=== PATIENT | male | born 2000 | race Caucasian/White ===

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

== ENCOUNTER 2019-01-08 13:23 | Emergency (ER) | payer BC ==
[2019-01-08] MEDS ORDERED: ONDANSETRON 4 MG (ODT) TAB ONE (14:54)
--- NOTE | 2019-01-08 14:54 | EDPHYS ---
Physician Documentation [facility] Name: Frantz Peralta Age: 19 yrs Sex: Male : 2000 Arrival Date: 01/08/2019 Time: 13:25 Bed 9 Private MD: Unknown, Unknown ED Physician Jhon Hanley HPI: 01/08 14:48 This 19 yrs old Male presents to ER via Ambulatory with complaints of Lump On jr8 Armpit. 14:48 This 19 yrs old Male presents to ER via Ambulatory with complaints of Lump On jr8 Armpit and face. 14:48 Patient stated that he was recently treated with abx for lump in armpit. Suppose to jr8 have US soon to evaluate area. Came today because now he has swollen, red, tender region to chin . Severity of symptoms: At their worst the symptoms were mild in the emergency department the symptoms are unchanged. It is unknown whether or not the patient has had similar symptoms in the past. The patient has been recently seen by a physician:. Historical: - Allergies: 13:38 No Known Allergies; la1 - PMHx: 13:38 None; la1 - Immunization history:: Adult Immunizations up to date. - Social history:: Smoking status: Patient/guardian denies using tobacco. - Ebola Screening: : No symptoms or risks identified at this time. ROS: 14:48 Constitutional: Negative for fever, chills, and weight loss. jr8 14:48 Skin: Positive for abscess. 14:48 Hematologic/Lymphatic: Positive for swollen nodes. 14:48 All other systems are negative. Exam: 14:48 Head/Face: Normocephalic, atraumatic. Eyes: Pupils equal round and reactive to light, jr8 extra-ocular motions intact. Lids and lashes normal. Conjunctiva and sclera are non-icteric and not injected. Cornea within normal limits. Periorbital areas with no swelling, redness, or edema. ENT: Nares patent. No nasal discharge, no septal abnormalities noted. Tympanic membranes are normal and external auditory canals are clear. Oropharynx with no redness, swelling, or masses, exudates, or evidence of obstruction, uvula midline. Mucous membranes moist. Neck: Trachea midline, no thyromegaly or masses palpated, and no cervical lymphadenopathy. Supple, full range of motion without nuchal rigidity, or vertebral point tenderness. No Meningismus. Chest/axilla: Normal chest wall appearance and motion. Nontender with no deformity. No lesions are appreciated. No axillary lymphadenopathy, mass, or abscess identified Cardiovascular: Regular rate and rhythm with a normal S1 and S2. No gallops, murmurs, or rubs. Normal PMI, no JVD. No pulse deficits. Respiratory: Lungs have equal breath sounds bilaterally, clear to auscultation and percussion. No rales, rhonchi or wheezes noted. No increased work of breathing, no retractions or nasal flaring. Abdomen/GI: Soft, non-tender, with normal bowel sounds. No distension or tympany. No guarding or rebound. No evidence of tenderness throughout. Back: No spinal tenderness. No costovertebral tenderness. Full range of motion. MS/ Extremity: Pulses equal, no cyanosis. Neurovascular intact. Full, normal range of motion. Neuro: Awake and alert, GCS 15, oriented to person, place, time, and situation. Cranial nerves II-XII grossly intact. Motor strength 5/5 in all extremities. Sensory grossly intact. Cerebellar exam normal. Normal gait. 14:48 Skin: small abscess to mental region of chin noted with purulent head. Vital Signs: 13:40 BP 127 / 87; Pulse 100; Resp 16; Temp 98.1; Pulse Ox 100% on R/A; Weight 108.86 kg; la1 Height 5 ft. 2 in. (157.48 cm); 13:40 Body Mass Index 43.90 (108.86 kg, 157.48 cm) [facility] Procedures: 14:48 I \T\ D: Incision and drainage was performed for an abscess of the chin Prepped with jr8 Betadine, Incised with #11 blade. Drained moderate amount purulent fluid. bloody fluid. the patient tolerated the procedure well. MDM: 14:20 Patient medically screened. [facility] 14:48 Data reviewed: vital signs, nurses notes, and as a result, I will discharge patient. jr8 Data interpreted: Pulse oximetry: on room air is 100 %. Interpretation: normal. Counseling: I had a detailed discussion with the patient and/or guardian regarding: the historical points, exam findings, and any diagnostic results supporting the discharge/admit diagnosis, the need for outpatient follow up, a general surgeon, to return to the emergency department if symptoms worsen or persist or if there are any questions or concerns that arise at home. ED course: Drained identifiable abscess on chin. No acute findings to axilla. Recommended keeping US appointment regardless and to follow back up with Chad . Administered Medications: 14:00 Drug: Zofran 4 mg Route: PO; ss 14:59 Follow up: Response: No adverse reaction; Medication administered at discharge. ss 14:53 Not Given (Other Intervention Used): morphine 4 mg IM once; RASS on ADMIN: Combtv4, jr8 Very Agttd3, Agttd2, Rstlss1, AlertClm0, Drwsy-1, Lt Sdtn-2, Mod Sdtn-3, Dp Sdtn-4, UnArsble-5 14:57 Drug: [place] (7.5 mg-325 mg) 1 tabs Route: PO; ss 14:59 Follow up: Response: No adverse reaction; Medication administered at discharge. ss Disposition: 16:07 Co-signature as Attending Physician, Jhon Hanley MD. rn Disposition: 01/08/19 14:54 Discharged to Home. Impression: Cutaneous abscess of face. - Condition is Stable. - Discharge Instructions: Skin Abscess, Incision and Drainage. - Prescriptions for Bactroban 2 % Topical Ointment - Apply to affected area 1 application by TOPICAL route every 12 hours; 30 gram. Bactrim DS 800- 160 mg Oral Tablet - take 1 tablet by ORAL route every 12 hours for 10 days; 20 tablet. - Medication Reconciliation Form, Thank You Letter, Antibiotic Education, Prescription Opioid Use form. - Follow up: Adama Bonilla MD; When: 1 week; Reason: Recheck today's complaints, Continuance of care, Re-evaluation by your physician. - Problem is new. - Symptoms have improved. Signatures: Jhon Hanley MD MD rn Smirch, Shelby, RN RN ss Jimmie Trammell PA PA jr8 Herman Segovia RN RN la1 Corrections: (The following items were deleted from the chart) 15:08 14:54 01/08/2019 14:54 Discharged to Home. Impression: Cutaneous abscess of face. ss Condition is Stable. Forms are Medication Reconciliation Form, Thank You Letter, Antibiotic Education, Prescription Opioid Use. Follow up: Adama Bonilla; When: 1 week; Reason: Recheck today's complaints, Continuance of care, Re-evaluation by your physician. Problem is new. Symptoms have improved. jr8
--- NOTE | 2019-01-08 14:54 | ER ---
Nurse's Notes [facility] Name: Frantz Peralta Age: 19 yrs Sex: Male : 2000 Arrival Date: 01/08/2019 Time: 13:25 Bed 9 Private MD: Unknown, Unknown Diagnosis: Cutaneous abscess of face Presentation: 01/08 13:38 Presenting complaint: Patient states: I have some redness and a spot on my chin and la1 under my left arm, they put me on cipro for the spot under my arm but its not getting better. Transition of care: patient was not received from another setting of care. Onset of symptoms was January 08, 2019. Risk Assessment: Do you want to hurt yourself or someone else? Patient reports no desire to harm self or others. Initial Sepsis Screen: Does the patient meet any 2 criteria? No. Patient's initial sepsis screen is negative. Does the patient have a suspected source of infection? No. Patient's initial sepsis screen is negative. Care prior to arrival: None. 13:38 Method Of Arrival: Ambulatory la1 13:38 Acuity: RICKY 4 la1 Historical: - Allergies: 13:38 No Known Allergies; la1 - PMHx: 13:38 None; la1 - Immunization history:: Adult Immunizations up to date. - Social history:: Smoking status: Patient/guardian denies using tobacco. - Ebola Screening: : No symptoms or risks identified at this time. Screenin:04 Abuse screen: Denies threats or abuse. Denies injuries from another. Nutritional ss screening: No deficits noted. Tuberculosis screening: Never had TB. Fall Risk None identified. Assessment: 14:04 General: Appears in no apparent distress. comfortable, Behavior is calm, cooperative, ss Denies fever, feeling ill, fatigue, chills. Pain: Complains of pain in chin. Neuro: Level of Consciousness is awake, alert, obeys commands, Oriented to person, place, time, situation. Cardiovascular: Capillary refill < 3 seconds is brisk in bilateral fingers. Respiratory: Airway is patent Respiratory effort is even, unlabored, Respiratory pattern is regular, symmetrical. GI: Patient currently denies abdominal pain, nausea. EENT: Oral mucosa is moist. Derm: Skin is pink, warm \T\ dry. normal, Abscess located on chin is quarter sized, is red, is raised. Musculoskeletal: Circulation, motion, and sensation intact. Range of motion: intact in all extremities, Swelling absent. Vital Signs: 13:40 BP 127 / 87; Pulse 100; Resp 16; Temp 98.1; Pulse Ox 100% on R/A; Weight 108.86 kg; la1 Height 5 ft. 2 in. (157.48 cm); 13:40 Body Mass Index 43.90 (108.86 kg, 157.48 cm) la1 ED Course: 13:25 Patient arrived in ED. ag5 13:27 Unknown, Unknown is Private Physician. ag5 13:38 Arm band placed on right wrist. la1 13:40 Triage completed. la1 14:04 Patient has correct armband on for positive identification. Bed in low position. Call ss light in reach. 14:20 Jimmie Trammell PA is PHCP. jr8 14:20 Jhon Hanley MD is Attending Physician. jr8 14:43 Ayana Bates RN is Primary Nurse. ss 14:53 Adama Bonilla MD is Referral Physician. jr8 15:08 No provider procedures requiring assistance completed. Patient did not have IV access ss during this emergency room visit. Administered Medications: 14:00 Drug: Zofran 4 mg Route: PO; ss 14:59 Follow up: Response: No adverse reaction; Medication administered at discharge. ss 14:53 Not Given (Other Intervention Used): morphine 4 mg IM once; RASS on ADMIN: Combtv4, jr8 Very Agttd3, Agttd2, Rstlss1, AlertClm0, Drwsy-1, Lt Sdtn-2, Mod Sdtn-3, Dp Sdtn-4, UnArsble-5 14:57 Drug: [place] (7.5 mg-325 mg) 1 tabs Route: PO; ss 14:59 Follow up: Response: No adverse reaction; Medication administered at discharge. ss Outcome: 14:54 Discharge ordered by . jr8 15:08 Discharged to home ambulatory. ss 15:08 Condition: good 15:08 Discharge instructions given to patient, family, Instructed on discharge instructions, follow up and referral plans. medication usage, Demonstrated understanding of instructions, follow-up care, medications, Prescriptions given X 2. 15:08 Patient left the ED. ss Signatures: Ayana Bates, RN RN ss Jimmie Trammell PA PA jr8 Herman Segovia RN RN la1 Jocy Rodriguez ag5 Corrections: (The following items were deleted from the chart) 13:40 13:38 Presenting complaint: Patient states: I have some redness and a spot on my chin la1 and under my left arm, la1
[2019-01-08] MEDS ORDERED: HYDROCODONE/APAP 7.5/325 MG TAB ONE (14:55)
[2019-01-09] MEDS ORDERED: INFLUENZA VACCINE (for 3y+) 0.5 ML DOSE IMVAC ONE (14:00)
== END 2019-01-08 15:08 | disposition home or self-care (01) ==
LOC: ER 13:23
PROC: 0H91XZZ Drainage of Face Skin, External Approach (ICD-10-PCS; principal; 2019-01-08)
DX: L02.01 Cutaneous abscess of face (principal)
CPT/HCPCS: 99283

== ENCOUNTER 2019-01-09 11:33 | Inpatient (IN) | payer BC ==
--- NOTE | 2019-01-09 12:36 | P.HP ---
Certification for Inpatient Patient admitted to: Inpatient With expected LOS: >2 Midnights Patient will require the following post-hospital care: None Practitioner: I am a practitioner with admitting privileges, knowledge of patient current condition, hospital course, and medical plan of care. Services: Services provided to patient in accordance with Admission requirements found in Title 42 Section 412.3 of the Code of Federal Regulations <Chris Trammell - Last Filed: 01/09/19 12:31> Patient History Date of Service: 01/09/19 Primary Care Provider: None Reason for admission: Cutaneous abscess chin with cellulitis History of Present Illness: This is a 19-year-old male that presented to the emergency room yesterday for possible abscess of the chin. At that time abscesses on route and abscess was drained. Patient was put on oral antibiotics. Came back to the emergency room today for worsening of symptoms. Patient was directly admitted at that time myself. Home medications list reviewed: Yes - Past Medical/Surgical History Has patient received pneumonia vaccine in the past: Yes Diabetic: No Past Medical History: Patient denies medical history Past Surgical History: Patient denies surgical history - Family History Family History: Reviewed- Non-Contributory - Social History Smoking Status: Never smoker Smoking therapy provided: No Alcohol use: No CD- Drugs: No Caffeine use: No Place of Residence: Home <Chris Trammell - Last Filed: 01/09/19 12:31> Date of Service: 01/09/19 History of Present Illness: Case discussed and reviewed with Jimmie Trammell NP. Patient was actually seen yesterday at the emergency room. Patient was discharged home after drainage. Worsening of abscess noted. Patient will be admitted for IV antibiotic therapy. Case discussed with ENT for IV antibiotic therapy and likely debridement. - Past Medical/Surgical History Psychosocial/ Personal History: Patient lives at home. - Family History Mother -: GI disease, Other (see notes) Notes: Hernia surgery, 2018; Cholecystectomy 2013 Father -: Other (see notes) Notes: Dermatitis <Leobardo Crowder - Last Filed: 01/09/19 17:40> Allergies No Known Allergies Allergy (Verified 03/27/18 14:32) Home Medications: Ibuprofen 800 mg PO Q6HP PRN 07/18/16 Sulfamethoxazole/Trimethoprim [Bactrim Ds Tablet] 1 each PO BID 07/18/16 Lisdexamfetamine Dimesylate [Vyvanse] 50 mg PO PRN PRN 03/27/18 Codeine/APAP [Tylenol W/Codeine #3 tab] 1 tab PO Q4HP PRN #30 tab 03/28/18 Mupirocin Oint [Bactroban 2% Ointment] 22 appl TOP DAILY #1 tube 03/28/18 Review of Systems General: Unremarkable Eyes: Unremarkable ENT: Unremarkable Respiratory: Unremarkable Cardiovascular: Unremarkable Gastrointestinal: Unremarkable Musculoskeletal: Unremarkable Integumentary: As per HPI Neurological: Unremarkable Lymphatics: Unremarkable <Chris Trammell - Last Filed: 01/09/19 12:31> Physical Examination - Vital Signs Temperature: 99.2 F Blood Pressure: 139/80 Pulse: 115 Respirations: 16 Pulse Ox (%): 96 - Physical Exam General: Alert, In no apparent distress, Oriented x3, Cooperative HEENT: Normocephalic, PERRLA, Mucous membr. moist/pink, Other (No sub lingual edema or swelling noted to suggest Gaetano's angina), EOMI Neck: Supple, 2+ carotid pulse no bruit, JVD not distended, No Thyromegaly, Other (Submandibular lymphadenopathy present) Respiratory: Clear to auscultation bilaterally, Normal air movement Cardiovascular: No edema, Normal pulses, Regular rate/rhythm, Normal S1 S2, No gallops, No rubs, No murmurs Capillary refill: <2 Seconds Gastrointestinal: Normal bowel sounds, Soft and benign, Non-distended, No ascites, No tenderness, No masses Musculoskeletal: No clubbing, No swelling, No contractures, No erythema, No tenderness, No warmth Integumentary: Other (Patient has abscess to chin with active draining with submental swelling and submandibular swelling.) Neurological: Normal gait, Normal speech, Normal strength at 5/5 x4 extr, Normal tone, Sensation intact, Cranial nerves 3-12 intact, Normal reflexes 2+, Normal affect Lymphatics: No axilla or inguinal lymphadenopathy <Chris Trammell - Last Filed: 01/09/19 12:31> - Studies Laboratory Data (last 24 hrs) 01/09/19 12:20: Sodium 139, Potassium 3.9, BUN 7, Creatinine 0.96, Glucose 93, Total Bilirubin 1.3 H, AST 8 L, ALT 21, Alkaline Phosphatase 78 01/09/19 12:20: WBC 17.7 H, Hgb 16.7, Hct 47.0, Plt Count 296 <Leobardo Crowder - Last Filed: 01/09/19 17:40> Assessment and Plan - Problems (Diagnosis) (1) Cutaneous abscess of face Current Visit: Yes Status: Acute (2) Cellulitis, face Current Visit: Yes Status: Acute - Plan Patient will be evaluated by Dr. Kelley. NPO at this time and most likely will have debridement of abscess later today or tomorrow. Patient will be on IV antibiotics. Blood cultures and wound culture had been obtained. Pending results. Patient's blood work and vitals will be monitored over the next couple of days. Discharge Plan: Home Plan to discharge in: Greater than 2 days - Advance Directives Does patient have a Living Will: No Does patient have a Durable POA for Healthcare: No - Code Status/Comfort Care Code Status Assessed: Yes Code Status: Full Code Critical Care: No Time Spent Managing Pts Care (In Minutes): 30 <Chris Trammell - Last Filed: 01/09/19 12:31> - Plan Continue with plan of care. ENT has been consulted for likely debridement. Continue IV antibiotic therapy. Cultures obtained. <Leobardo Crowder - Last Filed: 01/09/19 17:40>
[2019-01-09] MEDS: VANCOMYCIN 2 GM in NA CHLORIDE 0.9% 500 ML IVPB SCH (12:47)
[2019-01-09] MEDS: CEFEPIME/SWI 1gm 10 ML IV SCH ×2 (12:47→20:52)
[2019-01-09] MEDS: NA CHLORIDE 0.9% 1,000 ML IV SCH (12:47)
[2019-01-09 12:56] LABS: Absolute Lymphocytes (CBC) 2.6 K/uL (0.7-4.9); Basophils % 0.3 % (0-1.3); Lymphocytes % 14.8 % (15.3-44.8); MPV 8.9 fL (7.6-11.3)
[2019-01-09 13:07] VITALS: BMI 36.2
--- NOTE | 2019-01-09 13:08 | RAD REPORT ---
EXAM DESCRIPTION: CT - Soft Tissue Neck W/Contr - 01/09/2019 12:31 pm CLINICAL HISTORY: Neck abscess COMPARISON: None. TECHNIQUE: Computed axial tomography of the neck was obtained. 50 cc Isovue 300 was administered in travenously. Coronal and sagittal reconstruction was performed. All CT scans are performed using dose optimization technique as appropriate and may include automated exposure control or mA/KV adjustment according to patient size. FINDINGS: A 15 millimeter low-density mass with an enhancing rim is present within subcutaneous tis latosha anterior to the mandible slightly to the left of midline. It is compatible with an abscess. There is a large amount of surrounding cellulitis present. Stranding extends into the subcutaneous fat of the submental region Enlarged carried mandibular lymph nodes likely are reactive in nature The pharynx, tongue base, larynx and subglottic trachea appear unremarkable The parotid, submandibular and thyroid glands appear unremarkable. IMPRESSION: 15 millimeter abscess within the subcutaneous tissue anterior to the mandible to the lef t of midline. A marked cellulitis is present No involvement of the airway noted
[2019-01-09 13:09] LABS: ALT/SGPT 21 U/L (12-78); AST/SGOT 8 U/L (15-37); Albumin 4.1 g/dL (3.4-5.0); Alkaline Phosphatase 78 U/L (45-117); BUN Blood Urea Nitrogen 7 mg/dL (7-18); Bicarbonate 27 mmol/L (21-32); Bilirubin Total 1.3 mg/dL (0.2-1.0); Glucose Level 93 mg/dL (74-106); Potassium 3.9 mmol/L (3.5-5.1); Protein, Total 8.3 g/dL (6.4-8.2); Sodium Level 139 mmol/L (136-145)
[2019-01-09] MEDS ORDERED: MORPHINE 2 MG/ML SYR IV PRN (17:21)
[2019-01-09] MEDS ORDERED: ONDANSETRON 4 MG/2 ML VIAL IV PRN (17:22)
[2019-01-09] MEDS ORDERED: ACETAMINOPHEN 500 MG TAB PO PRN (17:55)
[2019-01-09 18:39] LABS: Urine Appearance CLEAR; Urine Bilirubin NEGATIVE (NEG); Urine Blood NEGATIVE (NEG); Urine Color YELLOW; Urine Glucose NEGATIVE (NEG); Urine Protein NEGATIVE (NEG); Urine Specific Gravity >=1.030 (1.005-1.030)
[2019-01-09 18:41] LABS: Urine Microscopic Reflex NO UMIC
[2019-01-09] MEDS: MUPIROCIN 2% OINT 22GM TUBE TOP SCH (20:51)
[2019-01-09] MEDS ORDERED: CEFEPIME 1 GM/VIAL IV SCH (21:00)
[2019-01-10] MEDS: VANCOMYCIN 2 GM in NA CHLORIDE 0.9% 500 ML IVPB SCH ×2 (01:04→12:36)
[2019-01-10] MEDS: NA CHLORIDE 0.9% 1,000 ML IV SCH (04:48)
[2019-01-10] MEDS: CEFEPIME/SWI 1gm 10 ML IV SCH ×2 (08:25→19:59)
[2019-01-10] MEDS: MUPIROCIN 2% OINT 22GM TUBE TOP SCH ×2 (08:26→19:59)
[2019-01-10] MEDS ORDERED: INFLUENZA VACCINE (for 3y+) 0.5 ML DOSE IMVAC ONE (10:00)
[2019-01-10] MEDS ORDERED: PNEUMOCOCCAL VACCINE 0.5 ML IMVAC ONE (12:00)
[2019-01-10] MEDS ORDERED: TRAMADOL HCL 50 MG TAB PO PRN (12:05)
[2019-01-10] MEDS ORDERED: IBUPROFEN 400 MG TAB PO PRN (12:05)
[2019-01-10] MEDS ORDERED: HYDROCODONE/APAP 7.5/325 MG TAB PO PRN (12:05)
--- NOTE | 2019-01-10 12:06 | P.PN ---
Subjective Date of Service: 01/10/19 Primary Care Provider: None Chief Complaint: Cutaneous abscess chin with cellulitis Subjective: Improving Physical Examination - Vital Signs Temperature: 97.9 F Blood Pressure: 112/73 Pulse: 86 Respirations: 16 Pulse Ox (%): 96 - Physical Exam General: Alert, In no apparent distress, Oriented x3, Cooperative HEENT: Other (Erythema, swelling to the lower chin improved. Less induration noted. No significant pain noted) Neck: Supple Respiratory: Clear to auscultation bilaterally, Normal air movement Cardiovascular: Normal pulses, Regular rate/rhythm Neurological: Normal speech, Normal strength at 5/5 x4 extr, Normal tone, Normal affect - Studies Laboratory Data (last 24 hrs) 01/09/19 12:20: Sodium 139, Potassium 3.9, BUN 7, Creatinine 0.96, Glucose 93, Total Bilirubin 1.3 H, AST 8 L, ALT 21, Alkaline Phosphatase 78 01/09/19 12:20: WBC 17.7 H, Hgb 16.7, Hct 47.0, Plt Count 296 Medications List Reviewed: Yes Assessment & Plan Discharge Plan: Home Plan to discharge in: 48 Hours Physician Review Additional Text: Impression: 15 mm abscess with facial cellulitis, failed outpatient therapy Plan: Case discussed with ENT. Continue with IV antibiotic therapy. No intervention required at this time. Continue to reassess. Erythema, induration and pain has improved. Provide options for pain. Dc IV fluids. Possible discharge in the next 1-2 days pending clinical improvement and culture results. Time Spent Managing Pts Care (In Minutes): 55
[2019-01-10 22:27] VITALS: O2SAT 97
[2019-01-11] MEDS: VANCOMYCIN 2 GM in NA CHLORIDE 0.9% 500 ML IVPB SCH (00:21)
[2019-01-11 06:17] LABS: BUN Blood Urea Nitrogen 12 mg/dL (7-18); Bicarbonate 29 mmol/L (21-32); Glucose Level 93 mg/dL (74-106); Magnesium 2.2 mg/dL (1.8-2.4); Potassium 3.7 mmol/L (3.5-5.1); Sodium Level 141 mmol/L (136-145)
[2019-01-11 07:05] LABS: Absolute Lymphocytes (CBC) 1.8 K/uL (0.7-4.9); Basophils % 0.7 % (0-1.3); Hematocrit 42.7 % (39.6-49.0); Lymphocytes % 21.5 % (15.3-44.8); MPV 8.8 fL (7.6-11.3); RBC Red Blood Cell Count 4.91 M/uL (4.33-5.43)
[2019-01-11] MEDS: MUPIROCIN 2% OINT 22GM TUBE TOP SCH (08:12)
[2019-01-11] MEDS: CEFEPIME/SWI 1gm 10 ML IV SCH (08:12)
--- NOTE | 2019-01-11 08:38 | P.PN ---
Subjective Date of Service: 01/11/19 Primary Care Provider: None Chief Complaint: Cutaneous abscess chin with cellulitis Improving. Dave reg diet Physical Examination - Vital Signs Temperature: 97.5 F Blood Pressure: 116/70 Pulse: 97 Respirations: 16 Pulse Ox (%): 0 - Physical Exam General: Alert, In no apparent distress HEENT: Other (Lower lip edema resolved. Persistant but improving induration of chin and R medial cheek. Mild redness of skin. Opening on L chin without active drainage. No palpable fluctuance.) Neck: LAD (R neck and submental area, expected degree of tenderness) Neurological: Normal speech, Normal affect - Studies Laboratory Data (last 24 hrs) 01/11/19 05:20: Sodium 141, Potassium 3.7, BUN 12, Creatinine 0.85, Glucose 93, Magnesium 2.2 01/11/19 05:20: WBC 8.5 D, Hgb 14.7, Hct 42.7, Plt Count 296 Microbiology Data (last 24 hrs): 01/09/19 16:50 Wound - Chin Gram Stain - Final - Staph aurues, not MRSA Medications List Reviewed: Yes Assessment & Plan Discharge Plan: Home - Code Status/Comfort Care Code Status: Full Code Physician Review: Patient Assessed, Agree with Above Assessment and Plan Physician Review Additional Text: Impression: 15 mm abscess with facial cellulitis, failed outpatient therapy. Now clinicially much improved with 48 h IV Vanco without palpable abscess at this time. Plan: Recommend d/c home today with PO Bactrim or Doxycycline. FU with ENT this week - patient instructed to call clinic on Saturday for time/date since the clinic is fully booked this week and we'll need to work him in somehow.
[2019-01-11 08:39] VITALS: BP 116/70; TEMP 97.5
--- NOTE | 2019-01-11 08:58 | P.DS ---
Admission Date: 01/09/19 Discharge Date: 01/11/19 Primary Care Provider: None Disposition: ROUTINE DISCHARGE Discharge Condition: GOOD Reason for Admission: Cutaneous abscess chin with cellulitis Consultations: ENT-Dr. Kelley Procedures: CT scan: FINDINGS: A 15 millimeter low-density mass with an enhancing rim is present within subcutaneous tissue anterior to the mandible slightly to the left of midline. It is compatible with an abscess. There is a large amount of surrounding cellulitis present. Stranding extends into the subcutaneous fat of the submental region Enlarged carried mandibular lymph nodes likely are reactive in nature The pharynx, tongue base, larynx and subglottic trachea appear unremarkable The parotid, submandibular and thyroid glands appear unremarkable. IMPRESSION: 15 millimeter abscess within the subcutaneous tissue anterior to the mandible to the left of midline. A marked cellulitis is present No involvement of the airway noted Medical Problem List: 15 mm abscess within the subcutaneous tissue anterior to the mandible with facial cellulitis, failed outpatient therapy, wound culture positive for Staph aureus Brief History of Present Illness: 19-year-old male presented to the emergency room with cellulitis to the mandible region. Patient had been seen by the ER the day before. Patient had been sent home after drainage in the ER. CT scan revealed 15 mm abscess to the mandible region with facial cellulitis. Patient was admitted for further treatment and felt outpatient therapy. Hospital Course: Patient presented with 15 mm abscess within the subcutaneous tissue anterior to the mandible with facial cellulitis. Patient had failed outpatient therapy. Patient had been seen in the ER with drainage the day before. Patient was admitted for further treatment. Patient responded well to IV antibiotic therapy. Patient seen and evaluated by ENT. No surgical intervention was required. Wound culture positive for Staph aureus. At discharge erythema and induration has significantly improved to the mandible region. No significant exudate noted. At discharge patient will continue with Bactrim DS 1 pill twice daily and doxycycline 100 mg twice daily for 10 days. Patient to clean wound with normal saline twice daily. Bactroban ointment to be placed to wound, nares and umbilicus twice daily. Patient will need a follow up with ENT early this week to follow up this hospitalization and continue his care. Vital Signs/Physical Exam: Temp Pulse Resp BP Pulse Ox 97.5 F 97 H 16 116/70 0 L 01/11/19 08:38 01/11/19 08:38 01/11/19 08:38 01/11/19 08:38 01/11/19 08:38 General: Alert, In no apparent distress, Oriented x3, Cooperative HEENT: Atraumatic, Other (Erythema, induration to the mandible region significantly improved. No exudate noted.) Respiratory: Normal air movement Neurological: Normal speech, Normal strength at 5/5 x4 extr, Normal tone Laboratory Data at Discharge: WBC 8.5 K/uL (4.3-10.9) D 01/11/19 05:20 Hgb 14.7 g/dL (13.6-17.9) 01/11/19 05:20 Hct 42.7 % (39.6-49.0) 01/11/19 05:20 Plt Count 296 K/uL (152-406) 01/11/19 05:20 Sodium 141 mmol/L (136-145) 01/11/19 05:20 Potassium 3.7 mmol/L (3.5-5.1) 01/11/19 05:20 BUN 12 mg/dL (7-18) 01/11/19 05:20 Creatinine 0.85 mg/dL (0.55-1.3) 01/11/19 05:20 Glucose 93 mg/dL (74-106) 01/11/19 05:20 Magnesium 2.2 mg/dL (1.8-2.4) 01/11/19 05:20 Total Bilirubin 1.3 mg/dL (0.2-1.0) H 01/09/19 12:20 AST 8 U/L (15-37) L 01/09/19 12:20 ALT 21 U/L (12-78) 01/09/19 12:20 Alkaline Phosphatase 78 U/L (45-117) 01/09/19 12:20 Home Medications: Doxycycline Hyclate 100 mg PO BID #20 tablet 01/11/19 Mupirocin Oint [Bactroban 2% Ointment*] 1 appl TOP BID #1 tube 01/11/19 Sulfamethoxazole/Trimethoprim [Bactrim Ds Tablet] 1 each PO BID #20 tablet 01/11 New Medications: Doxycycline Hyclate 100 mg PO BID #20 tablet Mupirocin Oint [Bactroban 2% Ointment*] 1 appl TOP BID #1 tube Sulfamethoxazole/Trimethoprim [Bactrim Ds Tablet] 1 each PO BID #20 tablet Patient Discharge Instructions: 1. Patient presented with 15 mm abscess within the subcutaneous tissue anterior to the mandible with facial cellulitis. Patient had failed outpatient therapy. Patient had been seen in the ER with drainage the day before. Patient was admitted for further treatment. Patient responded well to IV antibiotic therapy. Patient seen and evaluated by ENT. No surgical intervention was required. Wound culture positive for Staph aureus. At discharge erythema and induration has significantly improved to the mandible region. No significant exudate noted. At discharge patient will continue with Bactrim DS 1 pill twice daily and doxycycline 100 mg twice daily for 10 days. Patient to clean wound with normal saline twice daily. Bactroban ointment to be placed to wound, nares and umbilicus twice daily. Patient will need a follow up with ENT early this week to follow up this hospitalization and continue his care. 2. Patient plans to establish care with a PCP in the area. A list of providers will be provided. Diet: Regular Activity: Ad maria Time spent managing pt's care (in minutes): 55
[2019-01-11 14:02] LABS: C.diff Antigen/Toxin Ag neg : Tox neg (NEG : NEG)
--- NOTE | 2019-01-12 06:48 | P.PN ---
Date of Service: 01/10/19 S: subjectively improving in regards to pain and swelling. Dave PO O: Vitals reviewed. NAD. Alert. Improvement in redness and area of induration without any development of fluctuance. No active purulence from prior I&D site of L chin A: Improving with 24h IV Abx including Vanco. Cultures with staph aureus, sensitivities pending P: Continue IV Abx. Will assess on Saturday AM. If continued improvement, will recommend d/c home at that time. If there is development of organized abscess of the R chin, surgical treatment options will be discussed.
--- NOTE | 2019-01-12 07:44 | CON ---
Date of Consultation: 01/09/2019 Reason For Consultation: Facial abscess and cellulitis. History Of Present Illness: Frantz Peralta is a 19-year-old white male who presented to the emergency room on 01/08/2019. He was noted at that time to have a facial abscess and was on oral ciprofloxacin for axillary lymphadenopathy by Dr. Bonilla. The facial abscess was drained in the emergency room with a simple I and D and the patient was discharged to home on oral medication. He returned the with worsening redness, swelling and pain of the lower face, including the chin in the low er lip and the right jaw line. He underwent evaluation and was admitted for IV antibiotics due to fa iled outpatient therapy to the hospitalist team and ENT consultation was requested to evaluate for ne ed for more formal or operative intervention. Of note, the patient has a history of multiple Staph a ureus infections including an abscess of the buttock in June of 2016, an abscess of the thigh in August 2016 and infection of the right foot in September 2016 and a wound of the right thumb in March 9 with varying sensitivities. The patient does not have any known history of immunocompromise. No [facility] history of diabetes or hyperglycemia. Past Medical History: None other than above-noted infections. Past Surgical History: Includes tonsillectomy by me in 2011 and multiple operative interventions gabrielle giovanny with Dr. Bonilla for recurrent Staph infections and abscesses including the buttocks, the thi gh, the foot and the finger. Family History: Noncontributory. Social History: No tobacco, drug, or alcohol use. Allergies: NO KNOWN DRUG ALLERGIES. Home Medications: Vyvanse. Physical Examination: Patient is in no acute distress. He is alert and oriented. He has an area on the chin just left of midline with a small scab from recent incision and drainage. There is no evidence of wound packing a t this time. With gentle manipulation, approximately 5 mm x 5 mm area of thick purulence is expresse d, but there is no other significant fluctuance. There is moderate edema of the lower lip including edema of the gingival buccal sulcus. The tongue, floor, mouth, and oropharynx are unremarkable. The re is significant induration of the soft tissues of the chin and jaw line extending towards the right side with moderate erythema and shotty tender cervical lymphadenopathy. Patient's head and neck exa m are otherwise unremarkable. Other Data: Laboratory data indicates leukocytosis with a white blood cell count of 17.7 with otherw ise normal findings. The patient's basic metabolic profile is unremarkable. His glucose is 93. Uri nalysis was negative for glucose and protein. CT images from earlier today are personally reviewed i ncluding review of the radiologist examination. There is significant soft tissue stranding of submen flores area, chin and lower lip without significant evidence of the soft tissues overlying the cheek or more superior aspects. There is no evidence of significant sinus disease. There is no evidence of s ignificant dental erosion or periapical abscess on the CT scan suggesting the source of this infectio n overall is of soft tissue rather than odontogenic origin. There is an ill-defined area of hyperluc ency consistent with this physical exam. There is no significant rim enhancement of this area at thi s time. Assessment: Facial cellulitis with small superficial abscess which is currently draining and history of multiple soft tissue Staph aureus infections, failed outpatient oral therapy with ciprofloxacin. Recommendations: 1.Wound culture. 2.Admission for IV antibiotics including MRSA coverage. Recommend starting with vancomycin. 3.At this point, there is no acute surgical intervention planned and I will follow the patient with you. He can resume a regular diet. 4.Recommend t.i.d. cleaning of the face with Hibiclens and given patient's history, he would benefit from a weekly Hibiclens shower. We will reassess the patient in the morning with regard to improvement and reconsideration if there is evidence of coalescence of larger abscess. NIGEL/ARNULFO Voice ID: [id number] Report ID: [id number]
== END 2019-01-11 10:02 | disposition home or self-care (01) | DRG 603 ==
LOC: 2ND 11:33
PROVIDERS: ADMIT Physician Assistant; ATTEND Family Medicine
DX: L03.211 Cellulitis of face (principal); L02.01 Cutaneous abscess of face; B95.61 Methicillin susceptible Staphylococcus aureus infection as the cause of diseases classified elsewhere; Z23 Encounter for immunization
CPT/HCPCS: 36415; 70491; 80048; 80053; 80202; 81003; 83735; 84145; 85025; 87040; 87045; 87046; 87070; 87077; 87186; 87205; 87324; 87449; 90471; J0692; J7030; J7040; Q2035; Q9967

== ENCOUNTER 2021-01-31 12:00 | Day surgery (SDC) | payer BC ==
[2021-01-31 13:04] LABS: Absolute Lymphocytes (CBC) 2.6 K/uL (0.7-4.9); Basophils % 0.4 % (0-1.3); Hematocrit 45.8 % (39.6-49.0); Lymphocytes % 16.5 % (15.3-44.8); MPV 8.1 fL (7.6-11.3); RBC Red Blood Cell Count 5.29 M/uL (4.33-5.43)
[2021-01-31] MEDS ORDERED: Ringers Lactate 1,000 ML IV ONE (13:04)
[2021-01-31] MEDS ORDERED: CEFAZOLIN/NS 1gm 1 GM/50 ML BAG ONE (13:04)
[2021-01-31] MEDS ORDERED: CELECOXIB 100 MG CAPSULE ONE (16:27)
[2021-01-31] MEDS ORDERED: ACETAMINOPHEN 500 MG TAB ONE ×2 (16:28)
[2021-01-31] MEDS ORDERED: CELECOXIB 100 MG CAPSULE PO ONE (16:34)
[2021-01-31] MEDS ORDERED: ACETAMINOPHEN 500 MG TAB PO ONE (16:34)
[2021-01-31] MEDS ORDERED: BUPIVACAINE 0.5% PF 10 ML VIAL ONE (16:52)
[2021-01-31] MEDS ORDERED: ONDANSETRON 4 MG/2 ML VIAL ONE (17:06)
[2021-01-31] MEDS ORDERED: propofoL 200 MG/20 ML VIAL IV ONE (17:06)
[2021-01-31] MEDS ORDERED: KETOROLAC 30 MG/ML INJ ONE (17:06)
[2021-01-31] MEDS ORDERED: LIDOCAINE 2% MPF 5 ML VIAL ONE (17:06)
[2021-01-31] MEDS ORDERED: FENTANYL CITR 100 MCG/2 ML ONE (17:06)
[2021-01-31] MEDS ORDERED: dexAMETHasone 10 MG/ML VIAL ONE (17:07)
[2021-01-31] MEDS ORDERED: HYDROCODONE/APAP 7.5/325 MG TAB ONE (18:43)
[2021-01-31 19:18] VITALS: BP 108/60; TEMP 98.4; O2SAT 97
--- NOTE | 2021-01-31 19:48 | OP ---
Date of Procedure: 01/31/2021 Surgeon: Jermaine Connor MD Sleeping Bag Filler: None. Preoperative Diagnosis: Right buttock abscess. Postoperative Diagnosis: Right buttock abscess. Procedure: Incision, drainage and debridement of right buttock abscess. Estimated Blood Loss: Minimal. Specimen: Pus. Findings: As above. Anesthesia: General. Complications: None. Disposition: The patient tolerated the procedure well, in stable condition, and taken to Recovery in good general condition. Procedure In Detail: The patient was brought to the OR and placed in supine position. General anest hesia begun. The patient was placed in the left lateral position, prepped and draped in usual steril e fashion. Then, Marcaine 0.5% was infiltrated locally. Then 15 blade was used to make a 4 cm trans verse incision over the fluctuant part of the abscess, which was right of midline in the gluteal crea se. Subcutaneous tissue was divided, pus under pressure evacuated, loculation broken up. Necrotic t issue was debrided. Wound was irrigated. Bleeding was controlled with cautery. Cultures were done. Then wet-to-dry normal saline dressing change applied. Patient was awakened and taken to Recovery in good general condition. /MODL Voice ID: [id number] Report ID: [id number]
--- NOTE | 2021-01-31 20:00 | DS ---
The patient will go to Day Surgery and home when stable. Disposition: Home. Condition: Stable. Discharge Instructions: Resume home medications and diet. Activity as tolerated. No heavy lifting. Remove dressing in a.m. Wet-to-dry normal saline dressing changes daily. Tylenol No. 3 one tablet p.o. q.4 p.r.n. pain, Keflex 500 mg p.o. q.6h. Follow up in my office in 1 week. Call for appoint ment. YISEL/ARNULFO Voice ID: [id number] Report ID: [id number]
== END 2021-01-31 19:13 | disposition home or self-care (01) ==
LOC: OR 12:00
PROVIDERS: ATTEND Surgery
PROC: 0J990ZZ Drainage of Buttock Subcutaneous Tissue and Fascia, Open Approach (ICD-10-PCS; principal; 2021-01-31 14:00)
DX: L02.31 Cutaneous abscess of buttock (principal); Z20.822 Contact with and (suspected) exposure to COVID-19
CPT/HCPCS: 87070; 85025; 36415; 87205 ×2; 87075; 10060; U0003; J2704; J3010; J1100; J0690; J7120; J2405